=== PATIENT | female | born 1975 | race Caucasian/White ===

== ENCOUNTER 2021-07-30 04:13 | Emergency (ER) | payer BC, MEDICAID, MEDICARE ==
[~2021-07-30] VITALS: Ht 160 cm; Wt 55.9 kg
[~2021-07-30 04:13] MED LIST: ADV50250 IH; ALBU18HF2 IH; DEXL60CA3 PO; DIPH-423 PO; EST1T PO; FERR325T28 PO; LEVO88TA28 PO; MACROBID PO; OMEG1CAP54 PO; POTA2TAB6 PO; VITA1CAP PO; VITA1CAP62 PO
[2021-07-30] MEDS ORDERED: diphenhydrAMINE 50 mg/ml inj IV ONE (04:30)
[2021-07-30 04:50] VITALS: BP 123/78
[2021-07-30] MEDS ORDERED: EPIN0.3P3 IM (05:41)
== END 2021-07-30 06:02 | disposition home or self-care (01) ==
LOC: ER 04:15
DX: T78.40XA Allergy, unspecified, initial encounter (principal); J44.9 Chronic obstructive pulmonary disease, unspecified; K21.9 Gastro-esophageal reflux disease without esophagitis; E06.9 Thyroiditis, unspecified; F41.9 Anxiety disorder, unspecified; F32.A Depression, unspecified; Z88.2 Allergy status to sulfonamides; Z88.0 Allergy status to penicillin; Z88.5 Allergy status to narcotic agent; Z88.8 Allergy status to other drugs, medicaments and biological substances; Z79.899 Other long term (current) drug therapy
CPT/HCPCS: 96374; 99283; J1200

== ENCOUNTER → 2021-11-27 | Emergency (ER) | payer BC ==
[~2021-11-27] VITALS: Ht 160 cm; Wt 54.5 kg
[~2021-11-27] MED LIST changes: +EPIN0.3P3 IM; +PRED20TA PO; +dexamethasone sod phosphate 10mg/ml inj IM STA
[2021-11-27 12:36] LABS: BASOPHILS % (AUTO) 0.4 % (0-1); EOSINOPHILS # (AUTO) 0.2 X10'3 (0-0.9); EOSINOPHILS % (AUTO) 3.2 % (0-6); HEMATOCRIT 36.9 % (35.0-45.0); HEMOGLOBIN 12.7 g/dl (12.0-16.0); MEAN CORPUSCULAR HEMOGLOBIN 30.1 PG (27.0-31.0); MEAN CORPUSCULAR HGB CONC 34.4 g/dL (33.0-36.5); MEAN CORPUSCULAR VOLUME 87.5 FL (78-98); MEAN PLATELET VOLUME 6.9 FL (7.4-10.4); MONOCYTES # (AUTO) 0.6 X10'3 (0-0.9); MONOCYTES % (AUTO) 8.7 % (2-12); NEUTROPHILS # (AUTO) 5.3 X10'3 (1.8-7.7); NEUTROPHILS % (AUTO) 73.7 % (42-75); PLATELET COUNT 312 X10'3 (140-440); RED BLOOD COUNT 4.22 X10'6 (4.20-5.60); RED CELL DISTRIBUTION WIDTH 13.5 % (11.5-14.5); WHITE BLOOD COUNT 7.1 X10'3 (4.5-11.0)
[2021-11-27 12:44] LABS: ALANINE AMINOTRANSFERASE 20 U/L (12-78); ALBUMIN 3.5 G/DL (3.4-5.0); ALBUMIN/GLOBULIN RATIO 0.8 (1.1-1.5); ALKALINE PHOSPHATASE 82 IU/L (46-116); ANION GAP 8 (8-16); ASPARTATE AMINO TRANSFERASE 15 U/L (10-37); BILIRUBIN,TOTAL 0.3 MG/DL (0.1-1.0); BLOOD UREA NITROGEN 9 MG/DL (7-18); BUN/CREATININE RATIO 11.1 (6.6-38.0); CALCIUM 9.2 MG/DL (8.5-10.1); CHLORIDE 102 MMOL/L (99-107); CREATININE 0.81 MG/DL (0.40-0.90); GLUCOSE 111 MG/DL (70-104); POTASSIUM 3.6 MMOL/L (3.5-5.1); SODIUM 140 MMOL/L (135-145); TOTAL CARBON DIOXIDE 29.9 MMOL/L (24-32); TOTAL PROTEIN 7.8 G/DL (6.4-8.2); eGFR 75 ML/MIN
[2021-11-27 17:07] VITALS: BP 114/68
== END | disposition home or self-care (01) ==
LOC: ER 10:02
DX: U07.1 COVID-19 (principal); J44.9 Chronic obstructive pulmonary disease, unspecified; K21.9 Gastro-esophageal reflux disease without esophagitis; E03.9 Hypothyroidism, unspecified; F41.9 Anxiety disorder, unspecified; F32.A Depression, unspecified; E07.9 Disorder of thyroid, unspecified; Z88.2 Allergy status to sulfonamides; Z88.0 Allergy status to penicillin; Z88.5 Allergy status to narcotic agent; Z79.899 Other long term (current) drug therapy; Z88.8 Allergy status to other drugs, medicaments and biological substances; Z79.1 Long term (current) use of non-steroidal anti-inflammatories (NSAID); Z79.2 Long term (current) use of antibiotics
CPT/HCPCS: 36415; 71045; 80053; 83880; 84484; 85025; 93005; 96372; 99285; J1100

== ENCOUNTER 2022-08-31 10:57 | Emergency (ER) | payer BC ==
[~2022-08-31] VITALS: Ht 160 cm; Wt 55.9 kg
[~2022-08-31 10:57] MED LIST changes: -PRED20TA PO; -dexamethasone sod phosphate 10mg/ml inj IM STA
[2022-08-31] MEDS ORDERED: normal saline 1000ML IV soln IVB STA (11:43)
[2022-08-31] MEDS ORDERED: famotidine/PF 10 mg/ml inj IV ONE (11:45)
[2022-08-31] MEDS ORDERED: diphenhydrAMINE 50 mg/ml inj IV ONE (11:45)
[2022-08-31] MEDS ORDERED: methylPREDNISolone sod succ 125mg/2ml vial IV ONE (11:45)
[2022-08-31 13:47] VITALS: BP 120/66
== END 2022-08-31 13:50 | disposition home or self-care (01) ==
LOC: ER 10:58
DX: T78.40XA Allergy, unspecified, initial encounter (principal); J44.9 Chronic obstructive pulmonary disease, unspecified; J44.1 Chronic obstructive pulmonary disease with (acute) exacerbation; K21.9 Gastro-esophageal reflux disease without esophagitis; F41.9 Anxiety disorder, unspecified; F32.A Depression, unspecified; Z88.8 Allergy status to other drugs, medicaments and biological substances; Z88.2 Allergy status to sulfonamides
CPT/HCPCS: 93005; 96374; 96375; 99284; J1200; J2930; J3490; J7030; A6258

== ENCOUNTER 2022-09-10 09:32 | Emergency (ER) | payer BC ==
[~2022-09-10] VITALS: Ht 160 cm; Wt 57.4 kg
[2022-09-10] MEDS ORDERED: normal saline 1000ML IV soln IVB ONE (10:10)
[2022-09-10] MEDS ORDERED: methylPREDNISolone sod succ 125mg/2ml vial IV ONE (10:10)
[2022-09-10] MEDS ORDERED: albuterol 2.5 MG/3 ML nebule NEB ONE (10:10)
[2022-09-10 11:02] LABS: BASOPHILS % (AUTO) 0.3 % (0-1); EOSINOPHILS # (AUTO) 0.1 X10'3 (0-0.9); EOSINOPHILS % (AUTO) 1.2 % (0-6); HEMATOCRIT 39.6 % (35.0-45.0); HEMOGLOBIN 13.4 g/dl (12.0-16.0); LYMPHOCYTES # (AUTO) 1.4 X10'3 (1.1-4.8); LYMPHOCYTES % (AUTO) 25.3 % (21-51); MEAN CORPUSCULAR HEMOGLOBIN 30.1 PG (27.0-31.0); MEAN CORPUSCULAR HGB CONC 33.9 g/dL (33.0-36.5); MEAN CORPUSCULAR VOLUME 88.7 FL (78-98); MEAN PLATELET VOLUME 7.1 FL (7.4-10.4); MONOCYTES # (AUTO) 0.5 X10'3 (0-0.9); MONOCYTES % (AUTO) 9.5 % (2-12); NEUTROPHILS # (AUTO) 3.6 X10'3 (1.8-7.7); NEUTROPHILS % (AUTO) 63.7 % (42-75); PLATELET COUNT 279 X10'3 (140-440); RED BLOOD COUNT 4.46 X10'6 (4.20-5.60); RED CELL DISTRIBUTION WIDTH 13.8 % (11.5-14.5); WHITE BLOOD COUNT 5.7 X10'3 (4.5-11.0)
[2022-09-10 11:16] LABS: ALANINE AMINOTRANSFERASE 18 U/L (12-78); ALBUMIN 3.9 G/DL (3.4-5.0); ALBUMIN/GLOBULIN RATIO 1.1 (1.1-1.5); ALKALINE PHOSPHATASE 71 IU/L (46-116); ANION GAP 12 (8-16); ASPARTATE AMINO TRANSFERASE 13 U/L (10-37); BILIRUBIN,TOTAL 0.5 MG/DL (0.1-1.0); BLOOD UREA NITROGEN 11 MG/DL (7-18); BUN/CREATININE RATIO 12.5 (10.0-20.0); CALCIUM 8.9 MG/DL (8.5-10.1); CHLORIDE 105 MMOL/L (99-107); CREATININE 0.88 MG/DL (0.40-0.90); GLUCOSE 105 MG/DL (70-104); POTASSIUM 3.4 MMOL/L (3.5-5.1); SODIUM 143 MMOL/L (135-145); TOTAL CARBON DIOXIDE 26.2 MMOL/L (24-32); TOTAL PROTEIN 7.4 G/DL (6.4-8.2); eGFR 68 ML/MIN
[2022-09-10] MEDS ORDERED: POTASSIUM BICARB 20meq eff tab 20 MEQ TABLET.EFF PO STA (11:27)
[2022-09-10] MEDS ORDERED: PRED10TA PO (11:38)
[2022-09-10 11:51] VITALS: BP 118/60
== END 2022-09-10 11:53 | disposition home or self-care (01) ==
LOC: ER 09:33
DX: T78.40XD Allergy, unspecified, subsequent encounter (principal); E86.0 Dehydration; E87.6 Hypokalemia; J44.9 Chronic obstructive pulmonary disease, unspecified; K21.9 Gastro-esophageal reflux disease without esophagitis; F41.9 Anxiety disorder, unspecified; E05.90 Thyrotoxicosis, unspecified without thyrotoxic crisis or storm; Z90.49 Acquired absence of other specified parts of digestive tract; Z90.710 Acquired absence of both cervix and uterus; Z88.2 Allergy status to sulfonamides; Z88.0 Allergy status to penicillin; Z88.5 Allergy status to narcotic agent; Z88.8 Allergy status to other drugs, medicaments and biological substances; Z79.899 Other long term (current) drug therapy; X58.XXXD Exposure to other specified factors, subsequent encounter
CPT/HCPCS: 36415; 71045; 80053; 83880; 84484; 85025; 93005; 94640; 96361; 96374; 99285; J2930; J7030

== ENCOUNTER 2024-05-06 08:20 | Emergency (ER) | payer BC ==
[~2024-05-06] VITALS: Ht 157.5 cm; Wt 42.9 kg
[~2024-05-06 08:20] MED LIST changes: +PRED10TA PO
[2024-05-06 08:23] VITALS: TEMP 97.6
[2024-05-06] MEDS: diphenhydrAMINE 50 mg/ml inj IV ONE (08:51)
[2024-05-06] MEDS: famotidine/PF 10 mg/ml inj IV ONE (08:51)
[2024-05-06 10:18] VITALS: BP 97/66; PULSE 59; RESP 16; O2SAT 98
== END 2024-05-06 10:05 | disposition home or self-care (01) ==
LOC: ER 08:20
DX: T78.1XXA Other adverse food reactions, not elsewhere classified, initial encounter (principal); R06.02 Shortness of breath; K21.9 Gastro-esophageal reflux disease without esophagitis; E11.9 Type 2 diabetes mellitus without complications; J45.909 Unspecified asthma, uncomplicated; J44.9 Chronic obstructive pulmonary disease, unspecified; E05.90 Thyrotoxicosis, unspecified without thyrotoxic crisis or storm; F41.9 Anxiety disorder, unspecified; F32.A Depression, unspecified; F41.0 Panic disorder [episodic paroxysmal anxiety]; Z88.0 Allergy status to penicillin; Z88.5 Allergy status to narcotic agent; Z88.8 Allergy status to other drugs, medicaments and biological substances; Z88.2 Allergy status to sulfonamides; Z90.49 Acquired absence of other specified parts of digestive tract; Z90.710 Acquired absence of both cervix and uterus; Z79.52 Long term (current) use of systemic steroids; Z79.899 Other long term (current) drug therapy; X58.XXXA Exposure to other specified factors, initial encounter
CPT/HCPCS: 96374; 96375; 99284; J1200; J3490; J7030

== ENCOUNTER 2025-01-12 11:18 | Emergency (ER) | payer BC ==
[~2025-01-12] VITALS: Ht 157.5 cm; Wt 94.0 kg
[2025-01-12 11:23] VITALS: TEMP 98.3
--- NOTE | 2025-01-12 12:08 | RADIOLOGY REPORT ---
CHEST RADIOGRAPH Indication: CP Technique: Single frontal view of the chest was obtained COMPARISON: CHEST,SINGLE VIEW on DOS: 09/10/22, CHEST,SINGLE VIEW on DOS: 11/27/21 FINDINGS: Lines and Tubes: None Lungs: Possible viral pneumonia Pleura: No effusion. No pneumothorax. Cardiomediastinal contours: Unremarkable Bones: Unremarkable IMPRESSION: Possible viral pneumonia.
[2025-01-12 12:09] LABS: MEAN PLATELET VOLUME 7.7 FL (7.4-10.4); RED CELL DISTRIBUTION WIDTH 13.1 % (11.5-14.5)
--- NOTE | 2025-01-12 12:11 | ELECTROCARDIOGRAPH REPORT ---
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 Nuris Olivier Measurements Intervals Wheeler Rate: 66 P: 37 LA: 156 QRS: 18 QRSD: 94 T: 58 QT: 419 QTc: 439 Interpretive Statements Sinus rhythm Low voltage, precordial leads RSR' in V1 or V2, right VCD or RVH Electronically Signed On 01-12-2025 13:49:[address] Nuris Olivier Please click the below link to view image of tracing.
[2025-01-12 12:29] LABS: CREATININE 0.64 MG/DL (0.40-0.90); PRO BRAIN NATRIURETIC PEPTIDE 48 PG/ML (0-125); TOTAL CARBON DIOXIDE 27.5 MMOL/L (24-32); eCRCL 81 ML/MIN; eGFR > 90 ML/MIN
--- NOTE | 2025-01-12 14:07 | Physician Documentation ---
History of Present Illness ~ Chief Complaint: Allergic Reaction Stated Complaint: POSS ANAPHALAXIS Time Seen by MD: 12:08 OK to notify your PCP?: Yes Primary Medical Doctor: DR. 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 She also reports that there is a faint rash on her face which also occurs when her mast cell disorder gets activated. She states she was eating one of her safe foods which is beans and states that this is what was her trigger. She called an ambulance and was given Benadryl 25 mg in route which did improve her symptoms but she reports they have now returned. She denies any difficulty swallowing, tightness of her chest, chest pain, cough, lower extremity edema. Medication Reconciliation Allergies: Coded Allergies: doxycycline (Verified Allergy, Severe, SOB, 01/12/25) methotrexate (Verified Allergy, Severe, 05/06/24) Sulfa (Sulfonamide Antibiotics) (Verified Allergy, Intermediate, 01/11/13) Penicillins (Verified Allergy, Unknown, 05/06/24) codeine (Verified Allergy, Unknown, 07/15/13) miconazole (Verified Allergy, Unknown, 07/15/13) solifenacin succinate (Verified Allergy, Unknown, 07/15/13) trazodone (Unverified Allergy, Unknown, 07/15/13) Uncoded Allergies: MONISTAT CREAM (Allergy, Unknown, 07/15/13) TAPE (Allergy, Unknown, 07/15/13) Scheduled Dexlansoprazole (Dexilant), 60 MG PO DAILY, (Reported) Epinephrine (Epipen 2-Chidi), 1 SYR IM ONCE Estradiol* (Estrace*), 0.5 MG PO QAM, (Reported) Ferrous Sulfate* (Ferrous Sulfate*), 325 MG PO DAILY, (Reported) Fluticasone/Salmeterol* (Advair 250-50 Diskus*), 1 INH IH BID, (Reported) Levothyroxine Sodium* (Levoxyl*), 1 TAB PO DAILY, (Reported) Nitrofurantoin/Nitrofuran Mac* (Macrobid*), 1 CAP PO BID, (Reported) [place]-3 Fatty Acids/Fish Oil (Fish Oil 1,000 Mg Capsule), 1 EACH PO DAILY, (Reported) Potassium Gluconate (Potassium Gluconate), 595 MG PO DAILY, (Reported) Prednisone (Prednisone), 0 PO DAILY Vitamin A/Vitamin D3 (Pv Vitamin A & D Softgel), 1 EACH PO DAILY, (Reported) Vitamin B Complex (Vitamin B Complex), 1 EACH PO DAILY, (Reported) Scheduled PRN Albuterol Sulfate (Ventolin Hfa), 2 PUFFS IH Q4H PRN for SOB or wheezing, (Reported) Diphenhydramine Hcl* (Benadryl*), 1 CAP PO Q6H PRN for itching, (Reported) Past Medical History Past Medical History: Asthma, COPD, GERD, Hyperthyroidism, Thyroid (unspecified), Rheumatoid Arthritis, Anxiety, Depression, Panic Disorder Past Surgical History: appendectomy, cholecystectomy, hysterectomy Patient History: (DM Type 2) Diabetes mellitus type 2 09 FAMILY/OTHER Alcohol Use: None Drug Use: none Lives with: S/O Lives In: Home Occupation: employed Review of Systems All Other Systems at this time: Reviewed and Negative Physical Exam Vital Signs: Temperature: 98.3, Source: Oral, Heart Rate: 72, Respiratory Rate: 18, BP: 118/63, Pulse Oximetry: 99, Weight: 94.000 Oxygen Flow Rate: 0 Physical Exam General Appearance: Alert, WD/WN. NAD. HEENT: NCAT, PERRL, EOMI. Posterior pharyngeal wall normal, no swelling of tongue, speech normal. I do not appreciate any rash on patient's face. Neck: Supple, trachea midline. Cardiovascular: RRR. No m/r/g. Lungs: CTAB. Breathing unlabored Extremities: Normal inspection. No edema. Skin: Warm/dry, normal color. No visible rashes. Neurological: Alert and oriented x4, normal gait. Psychiatric: Affect congruent with mood. Progress Progress Note Patient: MATTHEW STACK Medical Record: [id number] [facility] : 1975, Age: 50 Sex: Female Location: ER Patient Status: REG ER Service Date/Time: 01/12/251156 Ordering Physician: NURIS OLIVIER MD Exam: CHEST,SINGLE VIEW CHEST RADIOGRAPH Indication: CP Technique: Single frontal view of the chest was obtained COMPARISON: CHEST,SINGLE VIEW on DOS: 09/10/22, CHEST,SINGLE VIEW on DOS: 11/27/21 FINDINGS: Lines and Tubes: None Lungs: Possible viral pneumonia Pleura: No effusion. No pneumothorax. Cardiomediastinal contours: Unremarkable Bones: Unremarkable IMPRESSION: Possible viral pneumonia. Results/Orders Results/Orders Orders - ROSALINDA LAWRENCE Covid19 Binax Poc Result Entry (01/12/25 14:11) Completed Orders - ROSALINDA LAWRENCE Methylprednisolone Sod Succ (Solumedrol (01/12/25 12:25) Diphenhydramine Inj (Benadryl Inj.) (01/12/25 12:25) Influenza Type A&B Rapid Test (01/12/25 14:11) Medications Received in ER Medications (Trade) Dose Ordered Sig/Mehdi Route PRN Reason Start Time Stop Time Status Last Admin Dose Admin (Benadryl inj.) 25 mg ONCE ONCE IV 01/12/25 12:25 01/12/25 12:26 DC 01/12/25 12:40 25 MG Vital Signs 01/12/25 01/12/25 01/12/25 01/12/25 11:23 11:37 12:20 13:20 Temp 98.3 Pulse 80 72 72 Resp 20 18 18 B/P (MAP) 118/63 (81) 118/63 (81) Pulse Ox 100 99 99 O2 Flow Rate 0 0 0 01/12/25 01/12/25 14:20 15:20 Pulse 68 75 Resp 18 18 B/P (MAP) 116/63 (80) 113/72 (86) Pulse Ox 100 99 O2 Flow Rate 0 0 Laboratory Tests Test 08/12/24 14:55 01/12/25 11:53 01/12/25 13:28 01/12/25 14:27 SARS-CoV-2 Antigen (Rapid) Negative White Blood Count 4.0 L Red Blood Count 4.06 L Hemoglobin 11.9 L Hematocrit 33.5 L Mean Corpuscular Volume 82.4 Mean Corpuscular Hemoglobin 29.4 Mean Corpuscular Hemoglobin Concent 35.7 Red Cell Distribution Width 13.1 Platelet Count 254 Mean Platelet Volume 7.7 Neutrophils (%) (Auto) 75.5 H Lymphocytes (%) (Auto) 13.9 L Monocytes (%) (Auto) 8.9 Eosinophils (%) (Auto) 1.0 Basophils (%) (Auto) 0.7 Neutrophils # (Auto) 3.0 Lymphocytes # (Auto) 0.6 L Monocytes # (Auto) 0.4 Eosinophils # (Auto) 0.0 Basophils # (Auto) 0.0 CBC Comment Sodium Level 138 Potassium Level 3.2 L Chloride Level 102 Carbon Dioxide Level 27.5 Anion Gap 9 Blood Urea Nitrogen 11 Creatinine 0.64 Estimated GFR/1.73 m2 > 90 BUN/Creatinine Ratio 17.2 Glucose Level 89 Calcium Level 8.6 Troponin I High Sensitivity 7 8 8 Pro-B-Type Natriuretic Peptide 48 Albumin 3.6 Chemistry Comments Troponin I High Sens Percent Delta 14 0 Troponin I Hi Sens Absolute Change 1 0 Test 01/12/25 14:55 Influenza Type A Antigen Negative Influenza Type B Antigen Negative Medical Decision Making Additional information obtaine: old records Findings Prior visits Differential Dx:Considerations: Include: Anaphylaxis, Angioedema, Bronchospasm, Contact dermatitis, Drug reaction, Hypotension, Latex allergy, Renal failure, Respiratory failure, Shock, Urticaria, Other Differential Diagnosis Patient was observed for a few hours and stated that the Benadryl 25 mg on top of the Benadryl that she had already got in route by EMS resolved her symptoms. She ended up declining the steroid that was ordered. Patient does have some mild hypokalemia but states that she wants to focus on potassium rich foods rather than take any potassium replacement. Departure Time of Disposition: 14:05 Disposition: 01 HOME / SELF CARE / HOMELESS Impression: Primary Impression: Acute allergic reaction Qualified Codes: T78.40XA - Allergy, unspecified, initial encounter Additional Impressions: Hypokalemia Abnormal chest x-ray Condition: Stable Discharge Instructions: General Discharge Instructions Additional Instructions: We discussed using prednisone but you wanted to hold off on this and it seemed like your symptoms resolved with Benadryl alone. If you have recurrence of your symptoms return to the emergency room. 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 I also recommend that you increase potassium rich foods and her potassium was slightly low at 3.2. Chest xray showed "possible viral pneumonia" ; however, your sudden onset of symptoms after eating beans is not consistent with viral pneumonia and your exam is not consistent with viral pnuemonia. Covid and influenza negative If fever, shortness of breath, cough return to ER. Recommend follow up chest xray in a month which your PCP can order. Referrals: NO PRIMARY CARE PROVIDER (PCP) Signature Scribe Signature: x Attestation: ROSALINDA Benson Jan 12, 2025 14:07
[2025-01-12 15:31] LABS: INFLUENZA TYPE A ANTIGEN RAPID NEGATIVE (Negative); INFLUENZA TYPE B ANTIGEN RAPID NEGATIVE (Negative)
[2025-01-12 16:13] VITALS: BP 103/77; PULSE 84; RESP 14; O2SAT 99
== END 2025-01-12 16:14 | disposition home or self-care (01) ==
LOC: ER 11:18
DX: T78.40XA Allergy, unspecified, initial encounter (principal); E87.6 Hypokalemia; R07.9 Chest pain, unspecified; R06.02 Shortness of breath; M06.9 Rheumatoid arthritis, unspecified; E11.9 Type 2 diabetes mellitus without complications; J44.9 Chronic obstructive pulmonary disease, unspecified; K21.9 Gastro-esophageal reflux disease without esophagitis; Z88.0 Allergy status to penicillin; Z88.1 Allergy status to other antibiotic agents; Z88.2 Allergy status to sulfonamides; Z88.3 Allergy status to other anti-infective agents; Z88.5 Allergy status to narcotic agent; Z88.8 Allergy status to other drugs, medicaments and biological substances; Z90.49 Acquired absence of other specified parts of digestive tract; Z90.710 Acquired absence of both cervix and uterus; Z20.822 Contact with and (suspected) exposure to COVID-19; X58.XXXA Exposure to other specified factors, initial encounter
CPT/HCPCS: 36415; 71045; 80048; 83880; 84484; 85025; 87804; 87811; 93005; 96374; 99285; J1200